=== PATIENT | female | born 1965 | race Caucasian/White ===

== ENCOUNTER → 2016-07-27 | Outpatient (CLI) | payer OTHER | LOC: RAD 16:06 | DX: S90.922A Unspecified superficial injury of left foot, initial encounter (principal) ==

== ENCOUNTER → 2016-08-03 | Outpatient (CLI) | payer OTHER | LOC: HYPER 07-29 07:00 | DX: E11.621 Type 2 diabetes mellitus with foot ulcer (principal); L97.522 Non-pressure chronic ulcer of other part of left foot with fat layer exposed; E11.40 Type 2 diabetes mellitus with diabetic neuropathy, unspecified; E66.09 Other obesity due to excess calories; I87.2 Venous insufficiency (chronic) (peripheral); M19.90 Unspecified osteoarthritis, unspecified site; K21.9 Gastro-esophageal reflux disease without esophagitis; F17.200 Nicotine dependence, unspecified, uncomplicated; Z79.84 Long term (current) use of oral hypoglycemic drugs ==

== ENCOUNTER → 2017-06-24 | Outpatient (CLI) | payer OTHER ==
[~2017-06-24] MED LIST: AMBIEN 5 MG TABL5 M1; AUGMENTIN 875-1 EACH PO; CEFTRIAXON1 GM/50 ML IV; CYCLOBENZAPRINE5 MG PO; ESTRADIOL 1 MG T1 M1 PO; EXCEDRIN CAPLE1 EACH PO; FENOFIBRATE50 MG PO; HYDROXYZINE HCL10 M1 PO; KEFLEX500 M1 PO; METFORMIN HCL500 MG PO; METHADONE HCL 110 M1 PO; MOBIC15 MG PO; NEURONTIN 300300 M1 PO; OXYCONTIN10 M1 PO; PROTONIX 20 MG20 M1 PO; REGLAN 10 MG TA10 MG PO; XANAX 0.5 MG0.5 M1 PO
== END ==
LOC: MRI 06-23 14:13
DX: E11.621 Type 2 diabetes mellitus with foot ulcer (principal); L03.116 Cellulitis of left lower limb; M86.8X7 Other osteomyelitis, ankle and foot

== ENCOUNTER 2017-08-09 09:15 | Inpatient (IN) | payer OTHER ==
[~2017-08-09] VITALS: Ht 172.7 cm; Wt 105.2 kg
--- NOTE | ~2017-08-09 | HC ---
[facility] [place] [address] CONSULTATION Name: CAPO VERDIN Room #: 432-P ADM IN M.R.#: [id number] Admission: 08/09/17 Attend Phys: Noel Adkins MD Discharge: Date of : 61 Report #: [id number] THIS REPORT FOR: //name// CC: Noel Adkins TYPE OF REPORT: Infectious disease consultation. REASON FOR CONSULTATION: I was asked to evaluate concerning left first toe nonhealing wound and infection. HISTORY OF PRESENT ILLNESS: The patient was a 52-year old underlying history of diabetes and peripheral neuropathy. She has had a nonhealing wound to the left great toe and metatarsal region for the last 3 weeks. Initially hospitalized at [facility]. MRI scan done there showed evidence of osteomyelitis. This has not been confirmed. Treated with clindamycin and Levaquin but did not improve. Has significant amount of pain in her foot. No fever, chills or sweats. Wound is not improving. She is a smoker of cigarettes. No specific trauma noted. ALLERGIES: None. MEDICATIONS: As noted on her JUN. She is now on vancomycin. PAST MEDICAL HISTORY: Diabetes, gastroparesis, peripheral neuropathy, retinopathy, osteoarthritis, scoliosis, cholecystitis and cholecystectomy and . FAMILY HISTORY: Noncontributory. SOCIAL HISTORY: As noted above. REVIEW OF SYSTEMS: No headache, cough, sputum, nausea, vomiting or diarrhea. PHYSICAL EXAMINATION: VITAL SIGNS: She is afebrile and hemodynamically stable. GENERAL: She was pleasant. Had ptosis on the left. HEENT: Otherwise, unremarkable. She had poor vision, upper dentures. NECK: Supple. No adenopathy. LUNGS: Clear. HEART: Regular, without murmur. ABDOMEN: Soft and nontender. EXTREMITIES: Pulses in her lower extremities were normal. Onychomycosis of her toenails. Very dry skin. Left lower extremity, left great toe with three ulcerations. No purulent drainage. The largest ulceration was on the distal medial aspect of her first toe. Also had a fairly large ulceration over the plantar aspect of her first metatarsal head. She had mild surrounding erythema. [facility] [address] [place] [address] CONSULTATION Name: ROSA NAIRCAPO Roberto Room #: 432-P ADM IN .R.#: [id number] Admission: 08/09/17 Attend Phys: Noel Adkins MD Discharge: Date of : 61 Report #: [id number] LABORATORY STUDIES: Arterial studies of the right lower extremity shows no obstructive changes. Sodium 140, potassium 3.5, bicarbonate 26 and creatinine 1. Liver function test normal. Hemoglobin 14.4; white count 7 and platelet count 198,000. Toe culture is pending. RADIOLOGICAL DATA: MRI scan from 06/24/2017 of the left foot shows focal erosive change involving the distal tuft of the first distal phalanx with reactive hyperemia extending throughout the rest of the distal phalanx. Flexion and extensor tendons appear intact. 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 She does have some changes of the distal tuft of her toe with a wound in this region. I would be concerned about underlying osteomyelitis. Most of the other bony changes I suspect are reactive. RECOMMENDATIONS: Recommend IV antibiotic therapy. Blood glucose control and wound care. Question whether she would be a candidate for HBO therapy. If no improvement in her wounds, we would require amputation. We will discuss further. Also, check sedimentation rate and CRP. <ELECTRONICALLY SIGNED> By: Tez Khanna MD 08/10/17 1239 06 2150 Tez Khanna MD /nt
--- NOTE | ~2017-08-09 | 2DMMODE ---
[facility] [address] 2 D/M-MODE ECHOCARDIOGRAM Name: CAPO VERDIN Room #: 170-10 ADM IN .R.#: [id number] Admission: 08/09/17 Attend Phys: Noel Adkins, Discharge: Date of : 61 Date of Service: 08/09/17 1237 Report #: [id number] THIS REPORT FOR: //name// APPROVED REPORT Study performed: 08/09/2017 11:22:00 EXAM: Comprehensive 2D, Doppler, and color-flow Echocardiogram Patient Location: ER Room #: 10 Status: routine BSA: 2.19 HR: 103 bpm BP: 133/79 mmHg Rhythm: Tachycardia Other Information Study Quality: Adequate Indications New murmur. DM Echo Enhancing Agent Indication: Rule out Shunt Agent(s) / Amount(s) Used: Agitated Saline 6 cc 2D Dimensions RVDd: 31.93 mm LVEF(%): 49.77 (>50%) IVSd: 10.60 (7-11mm) LVOT Diam: 23.30 (18-24mm) LVDd: 43.97 mm PWd: 11.50 (7-11mm) Ascending Ao: 41.31 (22-36mm) LVDs: 32.95 (25-40mm) Aortic Root: 37.68 mm Mansfield's LVEF: 49.77 % Volumes Left Atrial Volume (Systole) Single Plane 4CH: 60.07 mL Single Plane 2CH: 63.68 mL LA ESV Index: 30.00 mL/m2 Aortic Valve AoV Peak Fred.: 1.62 m/s AO Peak Gr.: 10.52 mmHg LVOT Max P.27 mmHg LVOT Max V: 1.35 m/s OSMAN Vmax: 3.54 cm2 [facility] [address] 2 D/M-MODE ECHOCARDIOGRAM Name: CAPO VERDIN Room #: 170-10 [facility] IN .R.#: [id number] Admission: 08/09/17 Attend Phys: Noel Adkins, Discharge: Date of : 61 Date of Service: 08/09/17 1237 Report #: [id number] Pulmonary Valve PV Peak Fred.: 1.29 m/s PV Peak Gr.: 6.68 mmHg Tricuspid Valve TR Peak Fred.: 2.74 m/s RAP Estimate: 10.00 mmHg TR Peak Gr.: 30.04 mmHg PA Pressure: 40.00 mmHg Left Ventricle The left ventricle is normal size. There is normal LV segmental wall motion. There is normal left ventricular wall thickness. Left ventricular systolic function is normal. LVEF is 55%. This study is not technically sufficient to allow evaluation of the LV diastolic function due to tachycardia. Right Ventricle The right ventricle is normal size. The right ventricular systolic function is normal. Atria The left atrium size is normal. Suspected PFO with color doppler with microbubble contrast study being off angle, cannot completely exclude minimal early LV contrast bubbles The right atrium size is normal. Aortic Valve The aortic valve is normal in structure. Minimally calcified. Mild aortic regurgitation. There is no aortic valvular stenosis. Mitral Valve The mitral valve is normal in structure. Mild mitral annular calcification. Trace mitral regurgitation. Tricuspid Valve The tricuspid valve is normal in structure. Trace tricuspid regurgitation. Estimated PAP is 40-45mmHg. Pulmonic Valve The pulmonary valve is normal in structure. Trace pulmonic regurgitation. Great Vessels Aortic root is borderline dilated. The ascending aorta is mildly dilated. IVC is dilated and collapses <50% with inspiration. [address] [address] 2 D/M-MODE ECHOCARDIOGRAM Name: CAPO VERDIN Room #: 170-10 [facility] IN [facility]#: [id number] Admission: 08/09/17 Attend Phys: Noel Adkins, Discharge: Date of : 61 Date of Service: 08/09/17 1237 Report #: [id number] Pericardium There is no pericardial effusion. <Conclusion> The left ventricle is normal size. LVEF is 55%. The aortic valve is normal in structure. Minimally calcified. Mild aortic regurgitation. The mitral valve is normal in structure. Mild mitral annular calcification. Trace mitral regurgitation. The tricuspid valve is normal in structure. Trace tricuspid regurgitation. Estimated PAP is 40-45mmHg. The pulmonary valve is normal in structure. Trace pulmonic regurgitation. Aortic root is borderline dilated. The ascending aorta is mildly dilated. There is no pericardial effusion. Suspected PFO with color doppler with microbubble contrast study being off angle, cannot completely exclude minimal early LV contrast bubbles <ELECTRONICALLY SIGNED> By: Caio Powers MD 08/09/17 1237 1237 1237 Caio Powers MD /INF
--- NOTE | ~2017-08-09 | HC ---
[facility] [place] [address] CONSULTATION Name: CAPO VERDIN Room #: 432-P ADM IN M.R.#: [id number] Admission: 08/09/17 Attend Phys: Noel Adkins MD Discharge: Date of : 61 Report #: [id number] THIS REPORT FOR: //name// CC: Noel Adkins HISTORY OF PRESENT ILLNESS: The patient is a pleasant 52-year-old female, for evaluation of her left great toe. The patient has recently seen her primary physician, Dr. Noel Adkins, and was admitted for an ongoing foot ulcer and probable osteomyelitis. The patient has a history of diabetic neuropathy. She has recently been hospitalized at [facility]. She reports that she was on IV antibiotics for approximately 10-14 days and then oral antibiotics. She has had a wound for 1-2 months' time per her report. The patient reports she ambulates minimally at home and has an underlying neuropathy and a history of wounds. PAST MEDICAL HISTORY: Significant for diabetes, gastroparesis, osteoarthritis, scoliosis, cholecystectomy and . SOCIAL HISTORY: The patient reports to smoke cigarettes on a regular basis. Denies alcohol use. Denies recreational drug use. Ambulates with a walker. ALLERGIES: No known drug allergies. MEDICATIONS: Please see current MAR. PHYSICAL EXAMINATION: GENERAL: The patient is alert, oriented, answering questions appropriately. VITAL SIGNS: Temperature 98.1, pulse 89, respirations 18, BP 161/76, O2 sats 95. Height 5 feet 8 inches, weight 232. EXTREMITIES: Examination of bilateral lower extremities reveals wound about the more medial aspect of the toe distally. She has lost her nail plate. This is approximately 1 cm in size. She also has more plantarly based ulcer about the first MTP joint. She has some prior old blisters on the more lateral aspect of the third and fifth toes. Diminished sensation is noted in the feet up to the ankles and distal leg. 2+ pulses are noted. Compartments are soft. No significant swelling is noted in the lower extremities. IMAGING: Radiographs of the foot reveal soft tissue wounds without underlying fracture or osteomyelitis. MRI of the foot, 06/24/2017, is read as erosive changes in the distal tuft of the first phalanx with reactive hyperemia felt to represent early signs of osteomyelitis. Ultrasound of the lower extremity reveals unremarkable right lower extremity arterial duplex. LABORATORY DATA: Reviewed. IMPRESSION: 1. Left great toe ulcerations with [place] [address] CONSULTATION Name: CAPO VERDIN Room #: 432-P ADM IN [facility]#: [id number] Admission: 08/09/17 Attend Phys: Noel Adkins MD Discharge: Date of : 61 Report #: [id number] 2. Diabetes. 3. Multiple medical comorbidities. PLAN: We discussed potential treatment options with the patient as well as Dr. Tez Khanna. The patient has been seen by Dr. Akdins as well as Dr. Turner of the wound team. Final culture results of the toe are pending, but with her nonhealing ulcers and persistent osteomyelitis, I have discussed with Dr. Khanna doing I and D of the toe and possible distal phalanx amputation/excision to station helper in healing of her soft tissue and bone infection. Her plantarly based MTP joint ulcer can hopefully be managed by Dr. Turner. We discussed potential risks, benefits, alternatives and complications of her wound and osteomyelitis and the potential for progression of this, potential for nonhealing of her wound requiring further care and treatment as well as potential surgical intervention and/or further amputation. Hopefully, with her underlying vascular status she can heal this area. Questions were encouraged, all were answered. The patient wished to proceed with possible I and D and partial amputation of the left great toe tomorrow. <ELECTRONICALLY SIGNED> By: Waqar Manzo MD 08/12/17 1005 1347 1937 Waqar Manzo MD /nt
--- NOTE | ~2017-08-09 | O ---
[facility] [place] [address] OPERATIVE REPORT Name: CAOP VERDIN Room #: 432-P [facility] IN M.R.#: [id number] Admission: 08/09/17 Attend Phys: Noel Adkins MD Discharge: Date of : 61 Report #: [id number] THIS REPORT FOR: //name// CC: Noel Adkins DATE OF SERVICE: 08/12/2017 PREOPERATIVE DIAGNOSES: Left great toe ulceration with distal phalanx osteomyelitis. POSTOPERATIVE DIAGNOSES: Left great toe ulceration with distal phalanx osteomyelitis. PROCEDURE PERFORMED: Left great toe irrigation and debridement and partial amputation. SURGEON: Waqar Manzo M.D. [employer]: None. ANESTHESIA: General per endotracheal tube. FLUIDS: 400 mL crystalloid. TOURNIQUET TIME: Approximately 15 minutes at 300 mmHg. DESCRIPTION OF PROCEDURE: After proper identification of the patient and operative site in the preoperative holding area, the operative site was signed by myself. Prophylactic antibiotics given. We again reviewed potential treatment options and she has also discussed these with Dr. Adkins and Dr. Khanna of Infectious Disease and Dr. Deo Turner of the Wound Care team. The patient and the other providers were wanting to proceed with the above-proposed procedure. The patient was brought back to the operative suite. Anesthesia was induced and LMA was placed and the patient aspirated. This was suctioned. She remained stable and anesthesia converted her to an endotracheal tube. The remainder of her anesthetic was uneventful per that report. The left lower extremity was elevated. Tourniquet was applied to the upper thigh and the limb was sterilely prepped and draped in the usual manner. The limb was elevated for exsanguination purposes and the tourniquet was inflated to 300 mmHg. At this point, a fish mouth-type incision was created over the distal aspect of the great toe. The ulcer was ellipsed out as well as a portion of the distal phalanx. There was some of bone that was in near proximity to the ulceration which was more medially based. As we got back into the base of the [facility] [address] [place] [address] OPERATIVE REPORT Name: CAPO VERDIN Room #: 432-P [facility] IN [facility].#: [id number] Admission: 08/09/17 Attend Phys: Noel Adkins MD Discharge: Date of : 61 Report #: [id number] phalanx, this appeared to be normal bone and this area was thoroughly irrigated with antibiotic irrigant. After this was shortened satisfactorily, a more distally based flap with otherwise what appeared to be well preserved tissue, was able to be swung superiorly and closed primarily with #2 Vicryl. Tourniquet was deflated. There was good hemostasis. A sterile dressing was applied. Toe was sent for specimen for histologic analysis. At the time of dictation, the patient was still in the operative suite with anticipated discharge to the recovery room in stable condition. By: Maryann: 08/12/17 0959 1141 Waqar Manzo MD /bernadette
[2017-08-09 10:06] LABS: HEMATOCRIT 44.6 % (37.0-47.0); HEMOGLOBIN 14.4 gm/dL (12.0-15.0); MCH 27.5 pg (26.0-34.0); MCHC 32.3 g/dL (28.0-37.0); MCV 85.2 fL (80.0-100.0); RBC 5.24 mil/uL (4.20-5.00); RDW 14.6 % (10.5-14.5)
[2017-08-09 10:16] LABS: ALBUMIN 3.6 g/dL (3.4-5.0); CALCIUM 10.1 mg/dL (8.5-10.1); POTASSIUM 3.5 mmol/L (3.5-5.1); TOTAL BILIRUBIN 0.3 mg/dL (<0.1-1.0); TOTAL PROTEIN 7.3 g/dL (6.4-8.2)
[2017-08-09 17:40] VITALS: BP 154/85
[2017-08-09 20:22] VITALS: BP 154/69
[2017-08-09] MEDS ORDERED: NEURONTIN 300300 M1 PO (20:53)
[2017-08-09] MEDS ORDERED: METFORMIN HCL500 MG PO (20:53)
[2017-08-09] MEDS ORDERED: MOBIC15 MG PO (20:54)
[2017-08-09] MEDS ORDERED: FENOFIBRATE50 MG PO (20:55)
[2017-08-09] MEDS ORDERED: ESTRADIOL 1 MG T1 M1 PO (20:55)
[2017-08-09] MEDS ORDERED: OXYCONTIN10 M1 PO (20:57)
[2017-08-09] MEDS ORDERED: REGLAN 10 MG TA10 MG PO (20:57)
[2017-08-09] MEDS ORDERED: METHADONE HCL 110 M1 PO (20:58)
[2017-08-09] MEDS ORDERED: AMBIEN 5 MG TABL5 M1 (20:59)
[2017-08-09] MEDS ORDERED: XANAX 0.5 MG0.5 M1 PO (21:00)
[2017-08-09] MEDS ORDERED: EXCEDRIN CAPLE1 EACH PO (21:01)
[2017-08-10 05:23] VITALS: BP 137/67
[2017-08-10 07:10] VITALS: BP 161/76
[2017-08-10 15:30] VITALS: BP 129/68
[2017-08-10 20:00] VITALS: BP 140/59
[2017-08-11 04:00] VITALS: BP 130/63
[2017-08-11 07:30] VITALS: BP 131/66
[2017-08-11 20:00] VITALS: BP 127/56
[2017-08-12 04:23] VITALS: BP 121/71
[2017-08-12 07:44] VITALS: BP 143/74
[2017-08-12 09:00] VITALS: BP 141/77
[2017-08-12 13:58] VITALS: BP 115/58
[2017-08-12 19:22] VITALS: BP 133/62
[2017-08-13 03:58] VITALS: BP 119/69
[2017-08-13] MEDS ORDERED: PROTONIX 20 MG20 M1 PO (05:52)
[2017-08-13 20:00] VITALS: BP 120/70
[2017-08-14 07:45] VITALS: BP 126/74
[2017-08-14 19:41] VITALS: BP 133/78
[2017-08-15 07:20] VITALS: BP 133/73
[2017-08-15] MEDS ORDERED: AUGMENTIN 875-1 EACH PO (07:48)
[2017-08-15 12:27] VITALS: BP 133/73
[2017-08-15 14:14] VITALS: BP 133/73
[2017-08-16] MEDS ORDERED: CEFTRIAXON1 GM/50 ML IV (13:15)
[2017-08-16] MEDS ORDERED: CYCLOBENZAPRINE5 MG PO (13:16)
[2017-08-16] MEDS ORDERED: HYDROXYZINE HCL10 M1 PO (13:17)
== END 2017-08-15 17:46 | disposition home health service (06) | DRG 617 ==
LOC: EROBS 09:15 → 4E 09:15 → SICU 08-13 16:27
PROVIDERS: Family Medicine
PROC: 0Y6Q0Z3 Detachment at Left 1st Toe, Low, Open Approach (ICD-10-PCS; principal; 2017-08-12)
PROC: 05HD33Z Insertion of Infusion Device into Right Cephalic Vein, Percutaneous Approach (ICD-10-PCS; 2017-08-15)
DX: E11.621 Type 2 diabetes mellitus with foot ulcer (principal); M86.10 Other acute osteomyelitis, unspecified site; M31.9 Necrotizing vasculopathy, unspecified; M86.8X8 Other osteomyelitis, other site; M19.90 Unspecified osteoarthritis, unspecified site; F17.210 Nicotine dependence, cigarettes, uncomplicated; L97.529 Non-pressure chronic ulcer of other part of left foot with unspecified severity; F41.9 Anxiety disorder, unspecified; E11.42 Type 2 diabetes mellitus with diabetic polyneuropathy; Z90.49 Acquired absence of other specified parts of digestive tract; E11.69 Type 2 diabetes mellitus with other specified complication; Z79.4 Long term (current) use of insulin; Z79.899 Other long term (current) drug therapy
CPT/HCPCS: 10783; 15002; 27001

== ENCOUNTER → 2017-08-16 | Outpatient (CLI) | payer OTHER ==
[~2017-08-16] MED LIST changes: -KEFLEX500 M1 PO
[2017-08-16 12:30] VITALS: BP 115/74
[2017-08-16 12:51] LABS: HEMATOCRIT 43.9 % (37.0-47.0); HEMOGLOBIN 14.5 gm/dL (12.0-15.0); MCH 27.7 pg (26.0-34.0); MCHC 33.1 g/dL (28.0-37.0); MCV 83.7 fL (80.0-100.0); RBC 5.24 mil/uL (4.20-5.00); RDW 14.4 % (10.5-14.5)
[2017-08-16 13:05] LABS: ALBUMIN 3.8 g/dL (3.4-5.0); CALCIUM 10.5 mg/dL (8.5-10.1); CREATININE 0.9 mg/dL (0.6-1.0); POTASSIUM 3.6 mmol/L (3.5-5.1); TOTAL BILIRUBIN 0.3 mg/dL (<0.1-1.0); TOTAL PROTEIN 7.7 g/dL (6.4-8.2)
[2017-08-16 13:30] VITALS: BP 115/74
== END ==
LOC: OPONC 06:27
PROVIDERS: Specialist
DX: M86.172 Other acute osteomyelitis, left ankle and foot (principal)
CPT/HCPCS: 95000

== ENCOUNTER → 2017-08-17 | Outpatient (CLI) | payer OTHER ==
[2017-08-17 15:07] VITALS: BP 127/65
== END ==
LOC: OPONC 00:19
DX: M86.172 Other acute osteomyelitis, left ankle and foot (principal)
CPT/HCPCS: 95000

== ENCOUNTER → 2017-08-18 | Outpatient (CLI) | payer OTHER ==
[2017-08-18 16:11] VITALS: BP 126/77
== END ==
LOC: OPONC
DX: M86.8X7 Other osteomyelitis, ankle and foot (principal)
CPT/HCPCS: 95000

== ENCOUNTER → 2017-08-19 | Outpatient (CLI) | payer OTHER ==
[2017-08-19 12:37] VITALS: BP 114/67
== END ==
LOC: OPONC 09:56
DX: M86.8X7 Other osteomyelitis, ankle and foot (principal)
CPT/HCPCS: 95000

== ENCOUNTER → 2017-08-22 | Outpatient (CLI) | payer OTHER ==
[2017-08-22 13:00] VITALS: BP 139/74
== END ==
LOC: OPONC 00:48
DX: M86.8X7 Other osteomyelitis, ankle and foot (principal)
CPT/HCPCS: 95000

== ENCOUNTER → 2017-08-23 | Outpatient (CLI) | payer OTHER ==
[2017-08-23 10:54] VITALS: BP 134/69
[2017-08-23 11:33] LABS: ABSOLUTE NEUTROPHILS 2.6 thou/uL (1.4-8.2); BASOPHILS 1.2 % (0.0-2.0); HEMOGLOBIN 12.8 gm/dL (12.0-15.0); LYMPHOCYTES 40.1 % (24.0-44.0); MCH 27.7 pg (26.0-34.0); MCHC 32.9 g/dL (28.0-37.0); MCV 84.2 fL (80.0-100.0); MONOCYTES 7.4 % (1.0-8.0); PLATELET COUNT 173 thou/uL (150-400); POLYS 46.3 % (36.0-66.0); RBC 4.64 mil/uL (4.20-5.00); RDW 14.1 % (10.5-14.5); WBC 5.6 thou/uL (4.0-11.0)
[2017-08-23 11:43] LABS: ALBUMIN 3.4 g/dL (3.4-5.0); POTASSIUM 3.8 mmol/L (3.5-5.1); TOTAL BILIRUBIN 0.3 mg/dL (<0.1-1.0); TOTAL PROTEIN 7.1 g/dL (6.4-8.2)
== END ==
LOC: OPONC 00:31
PROVIDERS: Specialist
DX: M86.8X7 Other osteomyelitis, ankle and foot (principal)
CPT/HCPCS: 95000

== ENCOUNTER → 2017-08-25 | Outpatient (CLI) | payer OTHER ==
[~2017-08-25] MED LIST changes: +KEFLEX500 M1 PO
[2017-08-25 14:24] VITALS: BP 157/70
== END ==
LOC: HYPER → OPONC 00:05 → HYPER 00:19
DX: M86.8X7 Other osteomyelitis, ankle and foot (principal)
CPT/HCPCS: 95000

== ENCOUNTER → 2017-08-26 | Outpatient (CLI) | payer OTHER ==
[2017-08-26 11:56] VITALS: BP 152/77
== END ==
LOC: OPONC 00:26
DX: M86.8X7 Other osteomyelitis, ankle and foot (principal)
CPT/HCPCS: 95000

== ENCOUNTER → 2017-08-27 | Outpatient (CLI) | payer OTHER | LOC: OPONC 05:41 | DX: M86.8X7 Other osteomyelitis, ankle and foot (principal) | CPT/HCPCS: 95000 ==

== ENCOUNTER → 2017-08-28 | Outpatient (CLI) | payer OTHER | LOC: OPONC 05:41 | DX: M86.8X7 Other osteomyelitis, ankle and foot (principal) | CPT/HCPCS: 95000 ==

== ENCOUNTER → 2017-08-29 | Outpatient (CLI) | payer OTHER ==
[2017-08-29 10:24] LABS: HEMATOCRIT 40.5 % (37.0-47.0); HEMOGLOBIN 13.4 gm/dL (12.0-15.0); MCH 27.8 pg (26.0-34.0); MCHC 33.1 g/dL (28.0-37.0); MCV 84.1 fL (80.0-100.0); RBC 4.82 mil/uL (4.20-5.00); RDW 14.3 % (10.5-14.5); WBC 6.3 thou/uL (4.0-11.0)
[2017-08-29 10:41] LABS: ALBUMIN 3.6 g/dL (3.4-5.0); CALCIUM 9.9 mg/dL (8.5-10.1); CREATININE 0.9 mg/dL (0.6-1.0); POTASSIUM 3.7 mmol/L (3.5-5.1); TOTAL BILIRUBIN 0.3 mg/dL (<0.1-1.0); TOTAL PROTEIN 6.9 g/dL (6.4-8.2)
[2017-08-29 11:15] VITALS: BP 128/72
== END ==
LOC: OPONC 08:12
PROVIDERS: Specialist
DX: M86.8X7 Other osteomyelitis, ankle and foot (principal)
CPT/HCPCS: 95000

== ENCOUNTER → 2017-09-05 | Outpatient (CLI) | payer OTHER ==
[2017-09-05 10:30] LABS: HEMATOCRIT 37.7 % (37.0-47.0); HEMOGLOBIN 12.5 gm/dL (12.0-15.0); MCH 28.1 pg (26.0-34.0); MCHC 33.1 g/dL (28.0-37.0); MCV 84.9 fL (80.0-100.0); RBC 4.43 mil/uL (4.20-5.00); RDW 14.8 % (10.5-14.5); WBC 5.2 thou/uL (4.0-11.0)
[2017-09-05 10:45] LABS: ALBUMIN 3.5 g/dL (3.4-5.0); CREATININE 0.9 mg/dL (0.6-1.0); POTASSIUM 3.6 mmol/L (3.5-5.1); TOTAL BILIRUBIN 0.3 mg/dL (<0.1-1.0); TOTAL PROTEIN 6.8 g/dL (6.4-8.2)
[2017-09-06 07:12] LABS: GLYCOHEMOGLOBIN (HGB A1C) 6.5 % (4.8-5.6)
== END ==
LOC: OPONC 05:41
PROVIDERS: Family Medicine; Specialist
DX: M86.8X7 Other osteomyelitis, ankle and foot (principal); R79.89 Other specified abnormal findings of blood chemistry
CPT/HCPCS: 91016

== ENCOUNTER 2018-03-23 20:03 | Inpatient (IN) | payer OTHER ==
[~2018-03-23] VITALS: Ht 172.7 cm; Wt 86.4 kg
--- NOTE | ~2018-03-23 | EKG ---
[address] [address] ELECTROCARDIOGRAM REPORT Name: CAPO VERDIN Room #: 216-[facility] IN ..#: [id number] Admission: 03/24/18 Attend Phys: Jacinto Meeks MD Discharge: Date of : 61 Report #: [id number] THIS REPORT FOR: //name// [facility] ED Test Date: 2018-03-23 Test Time: 20:48:10 Pat Name: CAPO NAIRDepartment: Room: [facility] Gender: F Operations Developer: [email or web address] : 1965 Requested By: Jessica Lentz Order Number: [id number] MD: Caio Powers Measurements Intervals [place] Rate: 131 P: 44 IN: 173 QRS: -22 QRSD: 103 T: 2 QT: 307 QTc: 454 Interpretive Statements Sinus tachycardia Multiple premature complexes supraven Probable left atrial enlargement No previous ECG available for comparison Electronically Signed On 03-25-2018 17:48:21 SOLVENT MIXER by Caio Powers [email or web address] <ELECTRONICALLY SIGNED> By: Caio Powers MD 03/25/18 1748 47 47 Caio Powers MD /STEWART
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
[2018-03-23 20:05] VITALS: BP 142/92
[2018-03-23 21:14] LABS: BASOPHILS 1.2 % (0.0-2.0); EOSINOPHILS 4.4 % (0.0-3.0); HEMATOCRIT 43.3 % (37.0-47.0); HEMOGLOBIN 14.1 gm/dL (12.0-15.0); LYMPHOCYTES 16.5 % (24.0-44.0); MCH 27.8 pg (26.0-34.0); MCHC 32.5 g/dL (28.0-37.0); MCV 85.5 fL (80.0-100.0); MONOCYTES 6.2 % (1.0-8.0); PLATELET COUNT 198 thou/uL (150-400); POLYS 71.7 % (36.0-66.0); RBC 5.06 mil/uL (4.20-5.00); RDW 14.8 % (10.5-14.5); WBC 8.4 thou/uL (4.0-11.0)
[2018-03-23 21:17] LABS: ANION GAP 13 mmol/L (7-16); BUN 8 mg/dL (7-18); CALCIUM 10.3 mg/dL (8.5-10.1); CHLORIDE 103 mmol/L (98-107); CO2 24 mmol/L (21-32); CREATININE 0.8 mg/dL (0.6-1.0); GLUCOSE 95 mg/dL (74-106); POTASSIUM 3.5 mmol/L (3.5-5.1); SODIUM 140 mmol/L (136-145)
[2018-03-23 21:28] LABS: ALBUMIN 3.8 g/dL (3.4-5.0); SGOT 35 U/L (15-37); SGPT 30 U/L (30-65); TOTAL BILIRUBIN 0.9 mg/dL (<0.1-1.0); TROPONIN-I <0.06 ng/mL (<0.06)
[2018-03-23 22:35] LABS: URINE BILIRUBIN NEGATIVE (Negative); URINE BLOOD NEGATIVE (Negative); URINE CLARITY CLEAR; URINE COLOR YELLOW; URINE GLUCOSE-RANDOM* NEGATIVE (Negative); URINE KETONES NEGATIVE (Negative); URINE LEUKOCYTES-REFLEX NEGATIVE (Negative); URINE NITRITE-REFLEX NEGATIVE (Negative); URINE PROTEIN (DIPSTICK) NEGATIVE (Negative); URINE SPECIFIC GRAVITY <= 1.005 (1.005-1.035)
[2018-03-23 22:42] LABS: AMP/METHAMP Negative (Negative); BARBITURATES Negative (Negative); BENZODIAZEPINES Negative (Negative); COCAINE Negative (Negative); METHADONE Negative (Negative); OPIATES Negative (Negative); PCP Negative (Negative)
[2018-03-24 03:52] VITALS: BP 123/55; BP 123/65
[2018-03-24 04:45] LABS: INR 1.1; PROTIME 11.2 Seconds (9.3-11.4)
[2018-03-24 05:21] VITALS: BP 135/72
[2018-03-24 06:16] LABS: HEMATOCRIT 39.4 % (37.0-47.0); HEMOGLOBIN 12.9 gm/dL (12.0-15.0); MCH 27.6 pg (26.0-34.0); MCHC 32.7 g/dL (28.0-37.0); MCV 84.4 fL (80.0-100.0); RBC 4.67 mil/uL (4.20-5.00); RDW 14.7 % (10.5-14.5); WBC 6.3 thou/uL (4.0-11.0)
[2018-03-24 08:10] VITALS: BP 127/68
[2018-03-24 16:20] VITALS: BP 149/85
[2018-03-24 20:00] VITALS: BP 133/65
[2018-03-25 03:15] VITALS: BP 131/69
[2018-03-25 04:51] LABS: HEMATOCRIT 38.9 % (37.0-47.0); HEMOGLOBIN 12.6 gm/dL (12.0-15.0); MCH 27.6 pg (26.0-34.0); MCHC 32.3 g/dL (28.0-37.0); MCV 85.3 fL (80.0-100.0); RBC 4.56 mil/uL (4.20-5.00); RDW 14.6 % (10.5-14.5); WBC 5.3 thou/uL (4.0-11.0)
[2018-03-25 05:03] LABS: CALCIUM 9.2 mg/dL (8.5-10.1); CREATININE 0.6 mg/dL (0.6-1.0); INR 1.1; POTASSIUM 3.2 mmol/L (3.5-5.1); PROTIME 11.8 Seconds (9.3-11.4)
[2018-03-25 08:53] VITALS: BP 134/83
[2018-03-25 12:18] VITALS: BP 134/72
[2018-03-25 16:23] VITALS: BP 135/75
[2018-03-25 19:46] VITALS: BP 140/71
[2018-03-26 02:23] LABS: APTT 52.7 Seconds (24.5-32.8); PROTIME 21.4 Seconds (9.3-11.4)
[2018-03-26 02:24] LABS: INR 2.1
[2018-03-26 05:01] VITALS: BP 129/78
[2018-03-26 07:57] VITALS: BP 132/74
[2018-03-26 11:20] VITALS: BP 155/95
[2018-03-26 16:33] VITALS: BP 138/84
[2018-03-26 19:16] VITALS: BP 140/85
[2018-03-27 04:00] VITALS: BP 128/83
[2018-03-27 06:28] LABS: HEMATOCRIT 41.5 % (37.0-47.0); HEMOGLOBIN 13.5 gm/dL (12.0-15.0); MCH 27.6 pg (26.0-34.0); MCHC 32.6 g/dL (28.0-37.0); MCV 84.6 fL (80.0-100.0); RBC 4.91 mil/uL (4.20-5.00); RDW 14.6 % (10.5-14.5); WBC 4.6 thou/uL (4.0-11.0)
[2018-03-27 06:38] LABS: PROTIME 35.5 Seconds (9.3-11.4)
[2018-03-27 06:42] LABS: INR 3.4
[2018-03-27] MEDS ORDERED: COUMADIN 5 MG TA5 M1 PO (09:28)
[2018-03-27] MEDS ORDERED: ACETAMINOPHEN325 M1 PO (09:29)
[2018-03-27] MEDS ORDERED: RISPERDAL 1 MG T1 MG PO (09:29)
[2018-03-27 10:35] VITALS: BP 135/89
[2018-03-27 11:33] VITALS: BP 147/85
[2018-03-27 12:05] VITALS: BP 147/85
== END 2018-03-27 13:35 | DRG 175 ==
LOC: ER 20:03 → EROBS 03-24 03:42 → 2N 03-24 03:42
PROVIDERS: Emergency Medicine; Family Medicine; Nurse Practitioner Family
DX: I26.99 Other pulmonary embolism without acute cor pulmonale (principal); E43 Unspecified severe protein-calorie malnutrition; E11.621 Type 2 diabetes mellitus with foot ulcer; E11.43 Type 2 diabetes mellitus with diabetic autonomic (poly)neuropathy; M19.90 Unspecified osteoarthritis, unspecified site; F29 Unspecified psychosis not due to a substance or known physiological condition; I87.2 Venous insufficiency (chronic) (peripheral); E11.65 Type 2 diabetes mellitus with hyperglycemia; F17.210 Nicotine dependence, cigarettes, uncomplicated; K31.84 Gastroparesis; Z90.49 Acquired absence of other specified parts of digestive tract; Z89.412 Acquired absence of left great toe; Z79.4 Long term (current) use of insulin; Z88.8 Allergy status to other drugs, medicaments and biological substances; Z91.040 Latex allergy status; Z79.01 Long term (current) use of anticoagulants; Z23 Encounter for immunization; Z79.899 Other long term (current) drug therapy; Z68.29 Body mass index [BMI] 29.0-29.9, adult
CPT/HCPCS: 10081

== ENCOUNTER → 2018-03-29 | Outpatient (CLI) | payer OTHER ==
[~2018-03-29] MED LIST changes: +ACETAMINOPHEN325 M1 PO; +COUMADIN 5 MG TA5 M1 PO; +RISPERDAL 1 MG T1 MG PO
== END ==
LOC: HYPER 03-13 07:13
DX: E11.621 Type 2 diabetes mellitus with foot ulcer (principal); L97.522 Non-pressure chronic ulcer of other part of left foot with fat layer exposed; E11.40 Type 2 diabetes mellitus with diabetic neuropathy, unspecified; M19.90 Unspecified osteoarthritis, unspecified site; K21.9 Gastro-esophageal reflux disease without esophagitis; I87.2 Venous insufficiency (chronic) (peripheral); F17.200 Nicotine dependence, unspecified, uncomplicated; Z79.84 Long term (current) use of oral hypoglycemic drugs

== ENCOUNTER 2018-04-13 15:57 | Inpatient (IN) | payer OTHER ==
[~2018-04-13] VITALS: Ht 170.2 cm; Wt 87.1 kg
--- NOTE | ~2018-04-13 | EKG ---
[address] [address] ELECTROCARDIOGRAM REPORT Name: CAPO VERDIN Room #: [facility] [place] .R.#: [id number] Admission: 04/13/18 Attend Phys: Noel Adkins MD Discharge: Date of : 61 Report #: [id number] THIS REPORT FOR: //name// [facility] ED Test Date: 2018-04-13 Test Time: 16:25:15 Pat Name: CAPO NAIRDepartment: Room: [facility] Gender: F [employer]airer: : 1965 Requested By: Nitin Covarrubias Order Number: [id number] MD: Duncan Mayen Measurements Intervals [place] Rate: 101 P: 18 MA: 175 QRS: -24 QRSD: 99 T: 6 QT: 332 QTc: 431 Interpretive Statements Sinus tachycardia Borderline left axis deviation Compared to ECG 03/23/2018 20:48:10 No significant changes Electronically Signed On 04-14-2018 9:12:09 BEEF SPLITTER by Duncan Mayen [email or web address] <ELECTRONICALLY SIGNED> By: Duncan Mayen MD 04/14/18911 1625 1625 MD KRISTEN Rodriguez
[2018-04-13 15:57] VITALS: BP 123/73
[~2018-04-13 15:57] MED LIST changes: -CYCLOBENZAPRINE5 MG PO; +FENOFIBRATE160 MG PO; -FENOFIBRATE50 MG PO; +FLEXERIL PO; -HYDROXYZINE HCL10 M1 PO; +HYDROXYZINE HCL50 MG PO
[2018-04-13 16:19] LABS: ABSOLUTE NEUTROPHILS 3.4 thou/uL (1.4-8.2); BASOPHILS 0.7 % (0.0-2.0); EOSINOPHILS 3.7 % (0.0-3.0); HEMATOCRIT 47.2 % (37.0-47.0); HEMOGLOBIN 15.7 gm/dL (12.0-15.0); LYMPHOCYTES 34.4 % (24.0-44.0); MCHC 33.2 g/dL (28.0-37.0); MCV 84.2 fL (80.0-100.0); MONOCYTES 5.7 % (1.0-8.0); PLATELET COUNT 149 thou/uL (150-400); POLYS 55.5 % (36.0-66.0); RBC 5.61 mil/uL (4.20-5.00); RDW 14.8 % (10.5-14.5); WBC 6.2 thou/uL (4.0-11.0)
[2018-04-13 16:26] LABS: ANION GAP 5 mmol/L (7-16); BUN 13 mg/dL (7-18); CALCIUM 10.3 mg/dL (8.5-10.1); CHLORIDE 108 mmol/L (98-107); CO2 29 mmol/L (21-32); CREATININE 0.9 mg/dL (0.6-1.0); GLUCOSE 112 mg/dL (74-106); POTASSIUM 3.9 mmol/L (3.5-5.1); SODIUM 142 mmol/L (136-145)
[2018-04-13 16:35] LABS: ALBUMIN 3.5 g/dL (3.4-5.0); LIPASE 117 U/L (73-393); SGOT 8 U/L (15-37); SGPT 11 U/L (30-65); TOTAL BILIRUBIN 0.4 mg/dL (<0.1-1.0); TROPONIN-I <0.06 ng/mL (<0.06)
[2018-04-13 16:38] LABS: URINE BILIRUBIN NEGATIVE (Negative); URINE BLOOD NEGATIVE (Negative); URINE CLARITY CLEAR; URINE COLOR YELLOW; URINE GLUCOSE-RANDOM* NEGATIVE (Negative); URINE KETONES NEGATIVE (Negative); URINE LEUKOCYTES-REFLEX NEGATIVE (Negative); URINE NITRITE-REFLEX NEGATIVE (Negative); URINE PROTEIN (DIPSTICK) NEGATIVE (Negative)
[2018-04-13 16:47] LABS: AMP/METHAMP Negative (Negative); BARBITURATES Negative (Negative); BENZODIAZEPINES POSITIVE (Negative); COCAINE Negative (Negative); METHADONE POSITIVE (Negative); OPIATES Negative (Negative); PCP Negative (Negative)
[2018-04-13 17:49] LABS: BE(vivo) -1.1 mmol/L (-2 to +3); HCO3 26.2 mmol/L (22.0-26.0); PCO2 54.1 mmHg (35.0-45.0); PO2 60.1 mmHg (80.0-100.0); sO2 88.2 % (92.0-98.0)
[2018-04-13 17:50] LABS: pH 7.303 (7.360-7.450)
[2018-04-13 18:20] VITALS: BP 141/80
[2018-04-13 18:59] LABS: SALICYLATE 3.9 mg/dL (2.8-20.0)
[2018-04-13 20:31] VITALS: BP 126/80
[2018-04-13] MEDS ORDERED: MEDROXYPROGEST2.5 MG PO (23:44)
[2018-04-13] MEDS ORDERED: MELOXICAM15 MG PO (23:45)
[2018-04-13] MEDS ORDERED: PAXIL10 MG PO (23:46)
[2018-04-13] MEDS ORDERED: GYNODIOL0.5 MG PO (23:48)
[2018-04-14] VITALS (8 sets, daily range): BP systolic 113–136; BP diastolic 58–83
[2018-04-14 04:29] LABS: CALCIUM 9.4 mg/dL (8.5-10.1); CREATININE 0.7 mg/dL (0.6-1.0); POTASSIUM 3.6 mmol/L (3.5-5.1)
[2018-04-14] MEDS ORDERED: RISPERDAL0.5 MG PO (11:55)
[2018-04-14] MEDS ORDERED: AMBIEN 5 MG TABL5 M1 PO (11:56)
[2018-04-15 06:00] VITALS: BP 123/77
[2018-04-15] MEDS ORDERED: METHADONE HCL 110 MG PO (08:27)
[2018-04-15 08:40] VITALS: BP 137/76
[2018-04-15 14:10] VITALS: BP 116/58
== END 2018-04-15 15:10 | disposition home health service (06) | DRG 871 ==
LOC: ER 15:57 → 2N 17:59 → EROBS 17:59 → 2N 20:16
PROVIDERS: Family Medicine; Physician Assistant
DX: A41.9 Sepsis, unspecified organism (principal); J15.6 Pneumonia due to other Gram-negative bacteria; J96.00 Acute respiratory failure, unspecified whether with hypoxia or hypercapnia; E87.2 Acidosis; M19.90 Unspecified osteoarthritis, unspecified site; Z60.2 Problems related to living alone; F17.210 Nicotine dependence, cigarettes, uncomplicated; E11.40 Type 2 diabetes mellitus with diabetic neuropathy, unspecified; F29 Unspecified psychosis not due to a substance or known physiological condition; Z90.49 Acquired absence of other specified parts of digestive tract; Z89.412 Acquired absence of left great toe; Z88.8 Allergy status to other drugs, medicaments and biological substances; Z91.040 Latex allergy status; Z79.899 Other long term (current) drug therapy
CPT/HCPCS: 10081

== ENCOUNTER → 2018-05-25 | Outpatient (CLI) | payer OTHER ==
[~2018-05-25] MED LIST changes: +AMBIEN 5 MG TABL5 M1 PO; +GYNODIOL0.5 MG PO; +MEDROXYPROGEST2.5 MG PO; +MELOXICAM15 MG PO; +METHADONE HCL 110 MG PO; +PAXIL10 MG PO; +RISPERDAL0.5 MG PO
== END ==
LOC: HYPER 04-26 07:02
DX: E11.621 Type 2 diabetes mellitus with foot ulcer (principal); L97.522 Non-pressure chronic ulcer of other part of left foot with fat layer exposed; L84 Corns and callosities; E11.40 Type 2 diabetes mellitus with diabetic neuropathy, unspecified; K21.9 Gastro-esophageal reflux disease without esophagitis; M19.90 Unspecified osteoarthritis, unspecified site; F17.200 Nicotine dependence, unspecified, uncomplicated; F17.290 Nicotine dependence, other tobacco product, uncomplicated; F41.9 Anxiety disorder, unspecified; Z79.84 Long term (current) use of oral hypoglycemic drugs

== ENCOUNTER → 2018-06-29 | Outpatient (CLI) | payer OTHER | LOC: HYPER 06:55 | DX: E11.621 Type 2 diabetes mellitus with foot ulcer (principal); L97.522 Non-pressure chronic ulcer of other part of left foot with fat layer exposed; L84 Corns and callosities; E11.40 Type 2 diabetes mellitus with diabetic neuropathy, unspecified; K21.9 Gastro-esophageal reflux disease without esophagitis; M19.90 Unspecified osteoarthritis, unspecified site; F17.290 Nicotine dependence, other tobacco product, uncomplicated; F41.9 Anxiety disorder, unspecified; Z98.49 Cataract extraction status, unspecified eye; Z90.49 Acquired absence of other specified parts of digestive tract; Z79.84 Long term (current) use of oral hypoglycemic drugs ==

== ENCOUNTER → 2018-08-24 | Outpatient (CLI) | payer OTHER | LOC: HYPER 07:10 | DX: E11.621 Type 2 diabetes mellitus with foot ulcer (principal); L97.522 Non-pressure chronic ulcer of other part of left foot with fat layer exposed; L84 Corns and callosities; E11.40 Type 2 diabetes mellitus with diabetic neuropathy, unspecified; K21.9 Gastro-esophageal reflux disease without esophagitis; M19.90 Unspecified osteoarthritis, unspecified site; F17.290 Nicotine dependence, other tobacco product, uncomplicated; F41.9 Anxiety disorder, unspecified; Z98.49 Cataract extraction status, unspecified eye; Z79.84 Long term (current) use of oral hypoglycemic drugs ==